=== PATIENT | male | born 1985 | race African-American/Black ===

== ENCOUNTER 2017-07-23 16:19 | Emergency (ER) | payer SELFPAY ==
[~2017-07-23] VITALS: Ht 180.3 cm; Wt 125.4 kg
[~2017-07-23 16:19] MED LIST: FLEXERIL10 MG PO; MOTRIN800 MG PO
[2017-07-23] MEDS ORDERED: FLEXERIL10 MG PO (17:15)
[2017-07-23 17:29] VITALS: BP 128/72
== END 2017-07-23 17:23 | disposition home or self-care (01) ==
LOC: EME 16:19
DX: M54.42 Lumbago with sciatica, left side (principal)
CPT/HCPCS: J1885